=== PATIENT | male | born 1995 | race Caucasian/White ===

== ENCOUNTER 2017-12-10 21:17 | Emergency (ER) | payer BC ==
[2017-12-10 21:31] VITALS: BP 128/78
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
[2017-12-10] MEDS ORDERED: FLAGYL PO ONE (23:28)
[2017-12-10] MEDS ORDERED: XYLOCAINE 1% MPF 5 mL INFILTRATI ONE (23:28)
[2017-12-10] MEDS ORDERED: ROCEPHIN IM ONE (23:28)
[2017-12-10] MEDS ORDERED: ZITHROMAX PO ONE (23:28)
== END 2017-12-11 00:15 | disposition home or self-care (01) ==
LOC: ED 21:17
DX: R36.9 Urethral discharge, unspecified (principal); Z20.2 Contact with and (suspected) exposure to infections with a predominantly sexual mode of transmission; F17.200 Nicotine dependence, unspecified, uncomplicated
CPT/HCPCS: 96372; 99282; J0696